=== PATIENT | female | born 1960 | race Caucasian/White ===

== ENCOUNTER → 2018-08-22 | Outpatient (CLI) | payer BC ==
[~2018-08-22] MED LIST: ABAT250V; ASPI81CH PO; ATOR20 PO; BETA.05TC TOP; CHOL10002 PO; FOLBIC RF TABL1 EACH PO; GABA600 PO; LORA10 PO; METO100ER PO; TRAM50 PO; TRAZ100 PO; VALS80 PO; VALSARTAN-HCTZ1 EAC2 PO
[2018-08-23 15:07] LABS: HPV 16 Negative (Negative); HPV 18 Negative (Negative); HPV OTHER HR TYPES Negative (Negative)
== END | disposition home or self-care (01) ==
LOC: LAB SHORT 12:18 → LAB 12:18
PROVIDERS: Nurse Practitioner Women's Health
DX: Z12.4 Encounter for screening for malignant neoplasm of cervix (principal); Z91.89 Other specified personal risk factors, not elsewhere classified
CPT/HCPCS: 87624; G0123

== ENCOUNTER → 2018-09-22 | Outpatient (CLI) | payer BC | END | disposition home or self-care (01) | LOC: PLD 14:23 → LAB SHORT 14:23 | DX: R93.89 Abnormal findings on diagnostic imaging of other specified body structures (principal) | CPT/HCPCS: 88305 ==

== ENCOUNTER 2019-02-05 09:59 | Day surgery (SDC) | payer BC ==
[~2019-02-05] VITALS: Ht 165.1 cm; Wt 174.8 kg
[~2019-02-05 09:59] MED LIST changes: +Estrace Vagin42.5 GM VAG; +LOSARTAN-HCTZ1 EACH PO; +Loratadine10 MG PO; +VITAMIN B12 PO
--- NOTE | 2019-02-05 10:34 | NUR ---
History, Chart, Medications and Allergies reviewed before start of procedure. Patient confirms NPO status and agrees with scheduled surgery. Lungs clear T/O to Auscultation, DECREASED IN BASES. Pre-Op teaching done. Pt verbalizes understanding. Patient States Post-Procedure ride home has been arranged. GENERAL OFFICE ASSISTANT REPORT COMPLETED AT BEDSIDE W/ MARIO ALBERTO CHRIS.
--- NOTE | 2019-02-05 12:30 | NUR ---
REPORT TO PAU Elizalde RN.
--- NOTE | 2019-02-05 13:06 | NUR ---
1250- UP TO DRESS WITH STEADY GAIT. PATIENT DENIES DIZZINESS. KENYATTA PAD HAS APPROX 25% RED DRAINAGE SATURATION AND SEROSANGINOUS DRAINAGE NOTED TO HARRIS PAD APPROX 2X6 INCHES, NO POOLING. FRESH PERIPAD GIVEN TO PATIENT TO WEAR HOME. Discharge instructions reviewed with patient. Patient verbalizes understanding. Copy given to patient to take home. Presciption for ibuprofen given to Patinet to take home.
== END 2019-02-05 12:55 | disposition home or self-care (01) ==
LOC: ORSCMMR 09:59 → ORD 11:10 → ORSCMMR 11:10
PROVIDERS: Obstetrics & Gynecology
PROC: 0UB98ZX Excision of Uterus, Via Natural or Artificial Opening Endoscopic, Diagnostic (ICD-10-PCS; principal; 2019-02-05 11:10)
PROC: 0UDB8ZX Extraction of Endometrium, Via Natural or Artificial Opening Endoscopic, Diagnostic (ICD-10-PCS; principal; 2019-02-05 11:10)
DX: N92.4 Excessive bleeding in the premenopausal period (principal); N84.0 Polyp of corpus uteri; R93.89 Abnormal findings on diagnostic imaging of other specified body structures; I10 Essential (primary) hypertension; G47.33 Obstructive sleep apnea (adult) (pediatric); E66.01 Morbid (severe) obesity due to excess calories; Z68.44 Body mass index [BMI] 60.0-69.9, adult; Z79.899 Other long term (current) drug therapy; Z79.84 Long term (current) use of oral hypoglycemic drugs
CPT/HCPCS: 88305; A9270-GY; J1100; J1885; J2250; J2405; J2704; J3010; J7120

== ENCOUNTER 2021-09-10 13:54 | Emergency (ER) | payer BC ==
[~2021-09-10] VITALS: Ht 167.6 cm; Wt 142.9 kg
[2021-09-10 15:34] LABS: Alanine Aminotransfer (ALT/SGP 32 U/L (12-78); Albumin, Blood 3.7 g/dL (3.4-5.0); Albumin/Globulin Ratio 1.1 (0.8-1.8); Alk Phos 59 U/L (50-136); Anion Gap 6 mmol/L (6-16); Aspartate Aminotrans (AST/SGOT 23 U/L (12-37); Bilirubin, Total 0.6 mg/dL (0.1-1.0); Blood Urea Nitrogen 16 mg/dL (8-24); CO2, Blood 31 mmol/L (21-32); Calcium, Blood 9.2 mg/dL (8.5-10.1); Chloride, Blood 103 mmol/L (98-108); Creatinine, Blood 0.76 mg/dL (0.40-1.00); Globulin, Blood 3.5 g/dL (2.2-4.0); Glomerular Filtration Rate >60 (60-); Glucose, Blood 106 mg/dL (70-99); Potassium, Blood 3.9 mmol/L (3.5-5.5); Sodium, Blood 140 mmol/L (136-145); Total Protein, Blood 7.2 g/dL (6.4-8.2)
[2021-09-10 15:35] LABS: BASOPHILS ABSOLUTE AUTO 0.07 K/mm3 (0.00-0.23); BASOPHILS PERCENT AUTO 1 % (0-2); EOSINOPHILS ABSOLUTE AUTO 0.15 K/mm3 (0.00-0.68); EOSINOPHILS PERCENT AUTO 2 % (0-6); Hematocrit 42.8 % (33.0-51.0); Hemoglobin 13.8 g/dL (11.5-16.0); IMMATURE GRAN ABSOLUTE AUTO 0.02 K/mm3 (0.00-0.10); IMMATURE GRAN PERCENT AUTO 0 % (0-1); LYMPHOCYTES ABSOLUTE AUTO 2.61 K/mm3 (0.84-5.20); LYMPHOCYTES PERCENT AUTO 37 % (21-46); MONOCYTES PERCENT AUTO 7 % (4-13); Mean Corpuscular HGB Conc 32.2 g/dL (31.5-36.5); Mean Corpuscular Volume 90 fL (80-100); Mean Platelet Volume 11.6 fL (9.1-12.4); NEUTROPHILS ABSOLUTE AUTO 3.74 K/mm3 (1.96-9.15); NEUTROPHILS PERCENT AUTO 53 % (41-73); Platelet Count 213 K/mm3 (150-400); RDW Coefficient Variation 13.2 % (11.7-14.2); RDW Standard Deviation 43.3 fL (35.1-46.3); Red Blood Cell Count 4.76 M/mm3 (3.80-5.20); White Blood Cell Count 7.09 K/mm3 (4.00-11.30)
== END 2021-09-10 16:42 | disposition home or self-care (01) ==
LOC: ER 13:54
PROVIDERS: Physician Assistant
DX: R20.0 Anesthesia of skin (principal); R51.9 Headache, unspecified; Z79.899 Other long term (current) drug therapy; Z88.6 Allergy status to analgesic agent; Z88.8 Allergy status to other drugs, medicaments and biological substances; I48.91 Unspecified atrial fibrillation; I10 Essential (primary) hypertension; Z87.891 Personal history of nicotine dependence
CPT/HCPCS: 36415; 70450; 80053; 85025; 93005; 93010; 99284-25

== ENCOUNTER 2024-02-23 11:50 | Day surgery (SDC) | payer BC ==
[~2024-02-23] VITALS: Ht 167.6 cm; Wt 170.0 kg
[~2024-02-23 11:50] MED LIST changes: +Balanced Salt Epinephrine Irrigation Solution 500 mL IR SCH; +Lidocaine HCl/Pf 1% 5 ML VIAL XX SCH; +Moxifloxacin HCL 0.5 MG/0.1 ML 0.4MLSYR LEFTEYE SCH; +NS 500 ML IV ONE; +PHENYLEPHRINE\\TROPICAMIDE\\TETRACAINE OPHTHALMIC DILATING SOLN LEFTEYE PRN; +Povidone-Iodine 450 DROP/30 ML Solution LEFTEYE SCH; +Povidone-Iodine 450 DROP/30 ML Solution ONE; +Tetracaine HCl/Pf 0.5% Opth Soln 4 ml ONE; +Triamcinolone Inj Susp 40 MG / ML 1ML Vial INJ SCH; +Triamcinolone Inj Susp 40 MG / ML 1ML Vial ONE
[2024-02-23] MEDS ORDERED: IBUP400 (12:40)
[2024-02-23] MEDS ORDERED: NS 1,000 ML IV ONE (12:52)
[2024-02-23] MEDS ORDERED: Midazolam HCl 1MG / ML 2ML Vial ONE (13:22)
[2024-02-23] MEDS ORDERED: HydrALAZINE HCl 20 MG / ML 1ML Vial ONE (14:20)
--- NOTE | 2024-02-23 14:28 | NUR ---
02/23/[address] CONSULTED REGARDING B/P AT 1415. HE ORDERED 5MG HYDRALAZINE (SEE ANESTHESIA ORDERS). HYDRALAZINE GIVEN AT 1420. DR. STEWARD PULLED HYDRALAZINE. ORDER DID NOT TRANSFER TO [facility]. HE ORDERED PT BE REASSESSED AT 1430 AND ADDITIONAL 2.5MG BE GIVEN IF SBP >153.
[2024-02-23 15:42] VITALS: BP 167/90
== END 2024-02-23 15:00 | disposition home or self-care (01) ==
LOC: ORSCSDS 11:50
PROVIDERS: Ophthalmology
PROC: 08RK3JZ Replacement of Left Lens with Synthetic Substitute, Percutaneous Approach (ICD-10-PCS; principal; 2024-02-23 13:30)
DX: H25.813 Combined forms of age-related cataract, bilateral (principal); H52.202 Unspecified astigmatism, left eye; I10 Essential (primary) hypertension; G47.33 Obstructive sleep apnea (adult) (pediatric); E66.9 Obesity, unspecified; Z68.44 Body mass index [BMI] 60.0-69.9, adult; Z87.891 Personal history of nicotine dependence; Z79.899 Other long term (current) drug therapy
CPT/HCPCS: J0360; J2250; J3301; J7040; V2632

== ENCOUNTER 2024-03-01 11:45 | Day surgery (SDC) | payer BC ==
[~2024-03-01] VITALS: Ht 167.6 cm; Wt 168.7 kg
[~2024-03-01 11:45] MED LIST changes: +IBUP400; -Moxifloxacin HCL 0.5 MG/0.1 ML 0.4MLSYR LEFTEYE SCH; +Moxifloxacin HCL 0.5 MG/0.1 ML 0.4MLSYR RIGHTEYE SCH; -PHENYLEPHRINE\\TROPICAMIDE\\TETRACAINE OPHTHALMIC DILATING SOLN LEFTEYE PRN; +PHENYLEPHRINE\\TROPICAMIDE\\TETRACAINE OPHTHALMIC DILATING SOLN RIGHTEYE PRN; -Povidone-Iodine 450 DROP/30 ML Solution LEFTEYE SCH; +Povidone-Iodine 450 DROP/30 ML Solution RIGHTEYE SCH
[2024-03-01] MEDS ORDERED: Tetracaine HCl 0.5% Opth Soln 15 ml ONE (12:10)
[2024-03-01] MEDS ORDERED: Diazepam 5 MG Tab ONE (12:53)
[2024-03-01] MEDS ORDERED: NS 500 ML IV ONE (13:08)
[2024-03-01 14:08] VITALS: BP 165/89
--- NOTE | 2024-03-01 14:55 | NUR ---
03/01/24 9641 Yolanda Mckeon PT UP IN RECLINER EATING STRING CHEESE AND DRINKING CRANBERRY JUICE WITHOUT N/V. HER SON ZAHRA IS PICKING UP AND DRIVING HOME.
== END 2024-03-01 14:40 | disposition home or self-care (01) ==
LOC: ORSCSDS 11:45
PROVIDERS: Ophthalmology
PROC: 08RJ3JZ Replacement of Right Lens with Synthetic Substitute, Percutaneous Approach (ICD-10-PCS; principal; 2024-03-01 13:30)
DX: H25.811 Combined forms of age-related cataract, right eye (principal); H52.201 Unspecified astigmatism, right eye; Z96.1 Presence of intraocular lens; F41.9 Anxiety disorder, unspecified; G47.33 Obstructive sleep apnea (adult) (pediatric); J45.909 Unspecified asthma, uncomplicated; M79.7 Fibromyalgia; I10 Essential (primary) hypertension; Z79.82 Long term (current) use of aspirin; Z79.899 Other long term (current) drug therapy; Z87.891 Personal history of nicotine dependence
CPT/HCPCS: A9270; J3301; J7040; V2632

== ENCOUNTER 2025-04-18 01:44 | Emergency (ER) | payer BC ==
[~2025-04-18] VITALS: Ht 167.6 cm; Wt 140.2 kg
[~2025-04-18 01:44] MED LIST changes: -Balanced Salt Epinephrine Irrigation Solution 500 mL IR SCH; -Lidocaine HCl/Pf 1% 5 ML VIAL XX SCH; -Moxifloxacin HCL 0.5 MG/0.1 ML 0.4MLSYR RIGHTEYE SCH; -NS 500 ML IV ONE; -PHENYLEPHRINE\\TROPICAMIDE\\TETRACAINE OPHTHALMIC DILATING SOLN RIGHTEYE PRN; -Povidone-Iodine 450 DROP/30 ML Solution ONE; -Povidone-Iodine 450 DROP/30 ML Solution RIGHTEYE SCH; -Tetracaine HCl/Pf 0.5% Opth Soln 4 ml ONE; -Triamcinolone Inj Susp 40 MG / ML 1ML Vial INJ SCH; -Triamcinolone Inj Susp 40 MG / ML 1ML Vial ONE
[2025-04-18 02:39] LABS: BASOPHILS ABSOLUTE AUTO 0.05 K/mm3 (0.00-0.23); BASOPHILS PERCENT AUTO 1 % (0-2); EOSINOPHILS ABSOLUTE AUTO 0.13 K/mm3 (0.00-0.68); EOSINOPHILS PERCENT AUTO 2 % (0-6); Hematocrit 43.1 % (33.0-51.0); Hemoglobin 14.0 g/dL (11.5-16.0); IMMATURE GRAN ABSOLUTE AUTO 0.02 K/mm3 (0.00-0.10); IMMATURE GRAN PERCENT AUTO 0 % (0-1); LYMPHOCYTES ABSOLUTE AUTO 2.34 K/mm3 (0.84-5.20); LYMPHOCYTES PERCENT AUTO 30 % (21-46); MONOCYTES ABSOLUTE AUTO 0.50 K/mm3 (0.16-1.47); MONOCYTES PERCENT AUTO 6 % (4-13); Mean Corpuscular HGB Conc 32.5 g/dL (31.5-36.5); Mean Corpuscular Volume 90 fL (80-100); NEUTROPHILS ABSOLUTE AUTO 4.83 K/mm3 (1.96-9.15); NEUTROPHILS PERCENT AUTO 61 % (41-73); NRBC ABSOLUTE 0.00 K/mm3 (0.00-0.02); NRBC Auto 0.0 /100 WBC (0.0-0.2); Platelet Count 239 K/mm3 (150-400); RDW Coefficient Variation 13.5 % (11.7-14.2); RDW Standard Deviation 44.7 fL (35.1-46.3)
[2025-04-18 02:51] LABS: Alanine Aminotransfer (ALT/SGP 27.0 U/L (12-78); Albumin, Blood 3.9 g/dL (3.4-5.0); Albumin/Globulin Ratio 1.1 (0.8-1.8); Anion Gap 8.0 mmol/L (3-11); Aspartate Aminotrans (AST/SGOT 25.0 U/L (12-37); Bilirubin, Total 0.7 mg/dL (0.1-1.0); Blood Urea Nitrogen 14.0 mg/dL (8-24); CO2, Blood 26.0 mmol/L (21-32); Calcium, Blood 9.4 mg/dL (8.5-10.1); Chloride, Blood 109.0 mmol/L (98-108); Creatinine, Blood 0.65 mg/dL (0.40-1.00); Globulin, Blood 3.5 g/dL (2.2-4.0); Glucose, Blood 106.0 mg/dL (70-99); Potassium, Blood 3.3 mmol/L (3.5-5.5); Sodium, Blood 140.0 mmol/L (136-145); Total Protein, Blood 7.4 g/dL (6.4-8.2)
[2025-04-18] MEDS ORDERED: Diltiazem HCl 5 MG / ML 5ML Vial IV ONE (03:40)
[2025-04-18 04:15] VITALS: BP 147/92
== END 2025-04-18 04:19 | disposition home or self-care (01) ==
LOC: ER 01:44
PROVIDERS: Student in an Organized Health Care Education/Training Program
DX: I48.91 Unspecified atrial fibrillation (principal); R00.2 Palpitations; I10 Essential (primary) hypertension; Z87.891 Personal history of nicotine dependence
CPT/HCPCS: 71046; 80053; 83735; 84484; 85025; 93005; 93010; 96374; 99285-25; A9270; J7120